=== PATIENT | female | born 1995 | race Caucasian/White ===

== ENCOUNTER 2018-02-20 00:46 | Emergency (ER) | payer OTHER, SELFPAY | END 2018-02-20 02:30 | disposition home or self-care (01) | PROVIDERS: Emergency Provider Emergency Medicine; Visit Provider Emergency Medicine | DX: L05.01 Pilonidal cyst with abscess (principal) | CPT/HCPCS: 10060; 99282 ==

== ENCOUNTER 2018-04-14 22:03 | Emergency (ER) | payer OTHER, SELFPAY ==
[2018-04-14 22:23] VITALS: BP 116/65; PULSE 97; RESP 14; TEMP 36.8; O2SAT 99; BMI 26.3
[2018-04-14] MEDS: ONDANSETRON 4 MG ODT 8 MG PO (22:50)
[2018-04-14 23:28] VITALS: BP 111/68; PULSE 88; O2SAT 98
--- NOTE | 2018-04-14 23:35 | ED.URI ---
HPI - URI/Sore Throat General Chief Complaint: Upper Respiratory Symptoms Stated Complaint: 14 WEEKS TASTE METALIC TASTE Time Seen by Provider: 04/14/18 22:09 History of Present Illness HPI Narrative: HPI 23-year-old female at 14 weeks gestation with the known intrauterine (prior ultrasound, has TRAINING AND DEVELOPMENT COORDINATOR) presents for evaluation of one day of minor sinus congestion, sore throat, dry nonproductive cough. Denies fevers, chills. Denies abdominal pain, notes that she has had ongoing issues with morning sickness, continues to tolerate liquids well, has had intermittent issues today with tolerance of solids. Continues pass flatus, stool, urine at baseline. Notes a mild metallic E-type taste that began after having sore throat. Denies rash, neck stiffness, headache, changes in vision or hearing, or ear pain. M/S/F/SocHx notable for: please see HPI; remainder reviewed with patient and in chart. ROS: Negative constitutional, eye, cardiovascular, pulmonary, GI, , MSK, skin, neurologic, psychiatric, endocrine unless noted in the HPI. Exam Gen: Pleasant, non-toxic appearing, resting comfortably. HEENT: Normocephalic, atraumatic. * Ears - TMs clear bilaterally, bilateral external auditory canals without erythema, inflammation, or swelling, bilateral mastoids nontender without overlying erythema, swelling, or warmth. * Eyes - Bilateral eyes without injection, swelling, or discharge, no proptosis or periorbital erythema, swelling, warmth, or tenderness. * Mouth - Anterior oropharynx with MMM, no lesions appreciated, floor of the mouth is soft and without swelling. Posterior oropharynx with mild erythema but without swelling, exudate, lesions, uvula midline. * Nose - nares without crusting or discharge. * Neck - Neck supple without posterior anterior cervical chain lymphadenopathy bilaterally. Resp: Clear to auscultation bilaterally, normal work of breathing without accessory muscle usage.Infrequent mildly productive cough observed. Card: Regular rate and rhythm with no murmurs, rubs or gallops. Extremities warm and well perfused. GI: Non-tender to palpation throughout all quadrants, no masses or organomegaly appreciated. : Deferred MSK: No visible deformities, strength and tone without visually appreciable deficit. Neuro: AO x 3, no facial asymmetry, vision and hearing WNL. Heme/Lymph: Deferred Skin: Normal color with no visible lesions (other than noted above). Psych: Mood and affect appropriate. MDM Previous chart, nursing note, and vitals reviewed. A: 23-year-old female at 14 weeks gestation with the known intrauterine (prior ultrasound, has TRAINING AND DEVELOPMENT COORDINATOR) presents for evaluation of one day of minor sinus congestion, sore throat, dry nonproductive cough. DDx: viral rhinosinusitis, bacterial rhinosinusitis, pharyngitis (HSV vs viral NOS vs GAS vs bacterial NOS)], EBV, peritonsillar cellulitis, SAMPLE STEAMER, RPA, Melquiades's angina, epiglottitis, appendicitis, biliary disease. Evaluation: Overall presentation most consistent with a viral rhinosinutisis, given the duration of symptoms and overall well compensated appearance, antibiotic treatment is not currently indicated, rapid strep not indicated, oral mucosa without lesions consistent with HSV or candidiasis, low suspicion for peritonsillar cellulitis or abscess given the absence of asymmetric swelling or uvular deviation, RPA is unlikely as the patient can comfortably flex and extend their neck and swallow without difficulty. As phonation is intact and breathing is unlabored doubt epiglottitis. The floor of the mouth is without evidence of Melquiades's angina. Lemierre's disease was considered but as the patient does not have signs of SAMPLE STEAMER or sepsis, further evaluation was not indicated. An intra-abdominal process was also considered, but as the patient is benign exam, and alternate symptom constellation that strongly points towards upper respiratory tract infection, and continues to take PO adequately and pass flatus and stool at baseline no further evaluations presently indicated. Patient given Zofran and tolerated both solids and liquids well. Patient discharged with Zofran and instructions to follow-up with her TRAINING AND DEVELOPMENT COORDINATOR. Suspect the patient's mild metallic type taste with secondary to her upper respiratory tract infection. ED Course: No clinically significant changes. Disposition: Discharge with return to care as needed. Return to care indications provided. Impression: Rhinosinusitis. (please reference below for remainder of encounter information) Related Data Home Medications Medication Instructions Recorded Confirmed [id number] acid 1 tab PO DAILY 04/14/18 04/14/18 [ 19] Allergies Allergy/AdvReac Type Severity Reaction Status Date / Time No Known Drug Allergies Allergy Verified 04/14/18 22:15 ON LICENSE OF [facility] Social History Smoking Status: Former smoker Exam Initial Vital Signs Initial Vital Signs: Vital Signs Temperature 98.3 F 04/14/18 22:23 Pulse Rate 97 H 04/14/18 22:23 Respiratory Rate 14 04/14/18 22:23 Blood Pressure 116/65 04/14/18 22:23 Pulse Oximetry 99 04/14/18 22:23 Course Orders Ordered: Discontinued Medications Ondansetron HCl (Zofran Odt) 8 mg PO NOW ONE Stop: 04/14/18 22:40 Last Admin: 04/14/18 22:50 Dose: 8 mg Ondansetron HCl (Zofran Odt Prepack) 1 bottle MISC SEEINSTR ONE Stop: 04/14/18 23:29 Vital Signs - 8 hr 04/14/18 22:23 04/14/18 23:28 Temperature 98.3 F Pulse Rate 97 H 88 Respiratory Rate 14 Blood Pressure 116/65 Blood Pressure [Right Arm] 111/68 Pulse Oximetry 99 98 Discharge Plan Departure Prescriptions: No Action [id number] acid [ 19] 29 mg iron- 1 mg Tablet,Chewable 1 tab PO DAILY RF: 0
[2018-04-14] MEDS: ONDANSETRON 4 MG ODT PREPACK 1 BOTTLE MISC (23:40)
== END 2018-04-14 23:43 | disposition home or self-care (01) ==
PROVIDERS: Emergency Provider Emergency Medicine
DX: R39.9 Unspecified symptoms and signs involving the genitourinary system (principal); J32.9 Chronic sinusitis, unspecified; Z3A.14 14 weeks gestation of pregnancy
CPT/HCPCS: 99282; 99283

== ENCOUNTER 2018-08-25 18:06 | Observation (INO) | payer OTHER, SELFPAY ==
--- NOTE | 2018-08-25 20:10 | PM.OBTRLD ---
Visit Information Visit Information Date of evaluation: 08/25/18 Primary OB Provider: Ravinder Reyez On-call OB Provider: Gianna Harding Reason for Evaluation: Yes non-stress test non-stress test reason: other (Patient fell and hit her right side of her abdomen) [facility] Social History Smoking Status: Former smoker Review of Systems Review of Systems Patient denies any vaginal bleeding. She denies any leakage of fluid. She has good movement. She does have pain especially in the right lower quadrant near her groin. All systems reviewed & are unremarkable except as noted in HPI and below Exam Vital Signs (past 8 hours): Blood pressure 104/63, pulse of 78, temperature 97? Narrative Exam Narrative: Patient's abdomen is soft with slight amount of tenderness on the right side. No bruising. Evaluation Evaluation Baseline heart rate: 140 Variability: Moderate (11-25) monitor accelerations: Present monitor decelerations: Absent Category of Tracing: I Diagnosis, Plan/Disposition Final Diagnosis (1) Blunt abdominal trauma: Current Visit: Yes Status: Acute (2) 33 weeks gestation of : Current Visit: Yes Status: Acute Plan/Disposition Plan: Patient with fall on her abdomen. No evidence of concern. Patient was warned to call if she has increasing abdominal pain, vaginal bleeding, decreased movement.
--- NOTE | 2018-08-25 20:13 | P.TNLD_ITS ---
Visit Information Visit Information Date of evaluation: 08/25/18 Primary OB Provider: Ravinder Reyez On-call OB Provider: Gianna Harding Reason for Evaluation: Yes non-stress test non-stress test reason: other ( Patient fell and hit her right side of her abdomen) [facility] Social History Smoking Status: Former smoker Review of Systems Review of Systems Patient denies any vaginal bleeding. She denies any leakage of fluid. She has good movement. She does have pain especially in the right lower quadrant near her groin. All systems reviewed & are unremarkable except as noted in HPI and below Exam Vital Signs (past 8 hours): Blood pressure 104/63, pulse of 78, temperature 97? Narrative Exam Narrative: Patient's abdomen is soft with slight amount of tenderness on the right side. No bruising. Evaluation Evaluation Baseline heart rate: 140 Variability: Moderate (11-25) monitor accelerations: Present monitor decelerations: Absent Category of Tracing: I Diagnosis, Plan/Disposition Final Diagnosis (1) Blunt abdominal trauma: Current Visit: Yes Status: Acute (2) 33 weeks gestation of : Current Visit: Yes Status: Acute Plan/Disposition Plan: Patient with fall on her abdomen. No evidence of concern. Patient was warned to call if she has increasing abdominal pain, vaginal bleeding, decreased movement.
== END 2018-08-25 20:20 | disposition home or self-care (01) ==
LOC: LABOR 18:07
PROVIDERS: Admitting Provider Specialist; Visit Provider Specialist
DX: S39.81XA Other specified injuries of abdomen, initial encounter (principal); Z3A.32 32 weeks gestation of pregnancy; W19.XXXA Unspecified fall, initial encounter
CPT/HCPCS: 59025; 59050; G0378; G0379

== ENCOUNTER → 2018-09-25 10:36 | Outpatient (CLI) | payer OTHER, SELFPAY ==
[2018-09-26 08:09] LABS: Strep Grp B PCR NEG for Grp B Strep
== END ==
DX: Z34.03 Encounter for supervision of normal first pregnancy, third trimester (principal)
CPT/HCPCS: 87653

== ENCOUNTER 2018-10-27 01:07 | Inpatient (IN) | payer OTHER, SELFPAY ==
[2018-10-27 06:15] VITALS: BP 115/65
[2018-10-27 06:31] LABS: Add Manual Diff / Slide Review NO; Basophils Percent Auto 0.4 % (0-2); Eosinophils Percent Auto 0.4 % (2-4); Hemoglobin 12.3 g/dL (12.0-16.0); Lymphocytes Percent Auto 17.8 % (25-40); Mean Corpuscular HGB Conc 33.1 % (30-36); Mean Corpuscular Hemoglobin 29.3 PG (26-34); Mean Corpuscular Volume 88.4 fL (80-100); Monocytes Percent Auto 6.6 % (3-14); Neutrophils Absolute Auto 9900 /uL (1500-7000); Neutrophils Percent Auto 74.8 % (50-75); Platelet Count 278 X10^3/uL (150-400); Red Blood Cell Count 4.19 X10^6/uL (4.0-5.2); Red Cell Distribution Width 14.9 % (11.6-14.8); White Blood Cell Count 13.2 X10^3/uL (4.5-11.0)
--- NOTE | 2018-10-27 07:47 | PM.OBPNLAB ---
Date/Time Date Patient Seen: 10/27/18 Time Patient Seen: 07:48 Pain Control Pain control: epidural Comments: Epidural working well Pelvic Exam Dilation (cm): 4 Effacement (%): 60 station: -4 Amniotic membrane status: Ruptured Comments: head is much higher than expected for primagravida at this stage of dilatation. Effacement is also atypical were we have a long open cervix. This may be an early indicator disproportion. There also has been two fairly significant decelerations which may represent decreased amniotic fluid volume. Contractions Contractions on admission: regular Monitor mode: External Contraction frequency (min): 4 Contraction duration (min): 60 Contraction pattern: Irregular Contraction intensity: Moderate Status status: Category ll Heart Rate Baseline: 120 Monitor Accelerations: Present Monitor Decelerations: Variable Monitor Variability: Moderate Comments: 2 long variable decelerations noted Assessment and Plan Assessment: active labor Plan: continuous present management Comments: Will recheck patient in a couple of hours to see about descent of the head effacement and dilatation. We may need to start Pitocin because of spacing out of contractions. We will need to pay attention to the intermittent deceleration is which have occurred.
[2018-10-27] MEDS: LACTATED RINGERS 1,000 ML 100 ML IV ×2 (08:07→15:03)
--- NOTE | 2018-10-27 10:34 | PM.OBPNLAB ---
Date/Time Date Patient Seen: 10/27/18 Time Patient Seen: 10:34 Pain Control Pain control: tolerating well and epidural Pelvic Exam Dilation (cm): 4 Effacement (%): 60 station: -4 Amniotic membrane status: Ruptured Comments: No progress since last exam Contractions Contractions on admission: irregular Monitor mode: External Contraction frequency (min): 60 Contraction pattern: Irregular Contraction intensity: Mild Status status: Category ll Heart Rate Baseline: 110 Monitor Decelerations: Absent Monitor Variability: Moderate Comments: Low baseline value. The response to scalp stimulation by 20 beats per Min Assessment and Plan Assessment: active labor Plan: begin patient augmentation Comments: Now has a desultory labor pattern with infrequent contractions. Examination shows the head to be still very high. Ultrasound examination shows the baby to be in SANGEETA presentation. The cervix is still relatively long and only 4 cm dilated.
[2018-10-27] MEDS: OXYTOCIN PREMIX 30 UNIT/500 ML PLAST..BAG IV (10:42)
--- NOTE | 2018-10-27 12:03 | PM.OBPNLAB ---
Date/Time Date Patient Seen: 10/27/18 Time Patient Seen: 12:04 Pain Control Pain control: tolerating well and epidural Pelvic Exam Dilation (cm): 4 Effacement (%): 60 station: -4 Amniotic membrane status: Ruptured Contractions Contractions on admission: regular Monitor mode: External Pitocin rate (mU/min): 3 Contraction frequency (min): 60 Contraction pattern: Regular Contraction intensity: Moderate Status status: Category ll Heart Rate Baseline: 120 Monitor Accelerations: Present Monitor Decelerations: Variable Comments: Patient with two variable decelerations to 70 beats r minute Assessment and Plan Assessment: active labor Plan: Comments: Patient with no progress and the head high out of the pelvis. The lack of descensus is the most worrisome sign. The long cervix without increase in dilatation is also worrisome. In addition the decelerations down to 70 in a variable pattern increases the risks and I think dictate delivery by abdominal method.
--- NOTE | 2018-10-27 13:49 | PM.GYNOP.1 ---
Operative Date/Time/Diagnoses Date of procedure: 10/27/18 Time of procedure: 13:49 Pre-op diagnosis: Cephalopelvic disproportion failure to progress Severe variable deceleration Post-op diagnosis: same Procedure: Primary low segment section, Flores type Indications: Cephalopelvic disproportion failure to progress Surgeon: Ravinder Reyez Anesthesia Type: Epidural Operative Notes Findings: Live-born fetus Normal uterus tubes and ovaries Closure Type: primary Specimen(s): none Applied: catheter Estimated blood loss (mL): 600 Blood products transfused: none Procedure in detail: The patient was placed supine upon the operating table and the epidural was reinforced. Patient was then draped and prepared in usual fashion. Transverse incision was made suprapubically. Subcutaneous tissue was incised to the fascia. Subcutaneous tissue was dissected away bluntly and the fascia was incised transversely in each direction. The pyramidalis muscles were incised in the midline and this was widened by blunt finger dissection. Peritoneum was picked up and incised in white blood finger dissection again. Bladder blade was then placed. Peritoneum over the lower uterine segment was picked up and incised laterally in each direction the bladder was taken down the bladder blade then replaced. Transverse incisions was made across the lower uterine segment. There was some bleeding secondary to low-lying placenta. Perforating incision was made and this was widened with blunt finger dissection. A live-born female with scores eight at 1 min nine at 5 min was delivered without difficulty. The labor delivery nurse and respiratory therapist were in attendance lb normal in good condition. The placenta was removed without difficulty. All membranes were massage of the endometrial cavity. The incision was then closed in imbricating fashion using a two layer technique with 1. Chromic suture. There was one bleeder on the right-hand side which was suture ligated with a [id number] suture the bleeding subsides. The visceral peritoneum was closed with a running two 0 chromic suture. Tubes and ovaries appeared to be normal. The parietal perineum was closed with a running two 0 chromic suture. Area was copiously irrigated. The fascia was closed with two continuous 1. Vicryl sutures. Subcutaneous tissue was closed in two layers. 1st layer was closed with interrupted three 0 Vicryl suture. 2nd layer was closed with running horizontal mattress three 0 Vicryl suture. The skin was further approximated Steri-Strips. At the end procedure the wound was dry urine was clear and the patient was taken to the recovery room in satisfactory condition. Complications: none Post-operative Condition: stable Disposition: PACU Plan for aftercare: Routine aftercare
--- NOTE | 2018-10-27 13:55 | P.OP_ITS ---
Operative Date/Time/Diagnoses Date of procedure: 10/27/18 Time of procedure: 13:49 Pre-op diagnosis: Cephalopelvic disproportion failure to progress Severe variable deceleration Post-op diagnosis: same Procedure: Primary low segment section, Flores type Indications: Cephalopelvic disproportion failure to progress Surgeon: Ravinder Reyez Anesthesia Type: Epidural Operative Notes Findings: Live-born fetus Normal uterus tubes and ovaries Closure Type: primary Specimen(s): none Applied: catheter Estimated blood loss (mL): 600 Blood products transfused: none Procedure in detail: The patient was placed supine upon the operating table and the epidural was reinforced. Patient was then draped and prepared in usual fashion. Transverse incision was made suprapubically. Subcutaneous tissue was incised to the fascia. Subcutaneous tissue was dissected away bluntly and the fascia was incised transversely in each direction. The pyramidalis muscles were incised in the midline and this was widened by blunt finger dissection. Peritoneum was picked up and incised in white blood finger dissection again. Bladder blade was then placed. Peritoneum over the lower uterine segment was picked up and incised laterally in each direction the bladder was taken down the bladder blade then replaced. Transverse incisions was made across the lower uterine segment. There was some bleeding secondary to low-lying placenta. Perforating incision was made and this was widened with blunt finger dissection. A live-born female with scores eight at 1 min nine at 5 min was delivered without difficulty. The labor delivery nurse and respiratory therapist were in attendance lb normal in good condition. The placenta was removed without difficulty. All membranes were massage of the endometrial cavity. The incision was then closed in imbricating fashion using a two layer technique with 1. Chromic suture. There was one bleeder on the right- hand side which was suture ligated with a [id number] suture the bleeding subsides. The visceral peritoneum was closed with a running two 0 chromic suture. Tubes and ovaries appeared to be normal. The parietal perineum was closed with a running two 0 chromic suture. Area was copiously irrigated. The fascia was closed with two continuous 1. Vicryl sutures. Subcutaneous tissue was closed in two layers. 1st layer was closed with interrupted three 0 Vicryl suture. 2nd layer was closed with running horizontal mattress three 0 Vicryl suture. The skin was further approximated Steri-Strips. At the end procedure the wound was dry urine was clear and the patient was taken to the recovery room in satisfactory condition. Complications: none Post-operative Condition: stable Disposition: PACU Plan for aftercare: Routine aftercare
[2018-10-27] MEDS: KETOROLAC 30 MG/ML VIAL IV ×2 (14:43→20:50)
[2018-10-27] MEDS: OXYCODONE IR 5 MG TABLET PO ×3 (14:51→22:50)
[2018-10-27 16:25] VITALS: TEMP 36.4
[2018-10-27] MEDS: HYDROMORPHONE 2 MG INJ IV ×2 (16:25→18:26)
[2018-10-27 18:26] VITALS: TEMP 36.2
[2018-10-27] MEDS: NICOTINE 14 PATCH 14 MG TOP (18:27)
[2018-10-28 02:00] VITALS: TEMP 36.2
[2018-10-28] MEDS: HYDROMORPHONE 2 MG INJ IV (02:00)
[2018-10-28 03:14] VITALS: TEMP 36.4
[2018-10-28] MEDS: KETOROLAC 30 MG/ML VIAL IV ×2 (03:14→09:37)
[2018-10-28 03:26] VITALS: TEMP 36.4
[2018-10-28] MEDS: OXYCODONE IR 5 MG TABLET PO ×4 (03:26→22:28)
--- NOTE | 2018-10-28 09:46 | P.PNOB_ITS ---
Subjective - OB Patient comments: no complaints and pain well controlled [place] baby status: doing well feeding status: exclusively breast feeding Narrative: The patient is a 23-year-old status post section for cephalopelvic disproportion and prolonged variable decelerations. The surgery was uneventful. She was delivered a baby girl 8 lb 7 oz who is doing well and she is . The patient's IV is out. Her Acosta was removed this morning which she has not voided. She is taking p.o. well Date Patient Seen: 10/28/18 Time Patient Seen: 09:45 Exam Vital Signs (past 8 hours): - 10/28/18 02:00 10/28/18 03:14 10/28/18 03:26 Temperature 97.1 F L 97.5 F L 97.5 F L Narrative Exam Narrative: Fundus U minus two Incision is covered with a dressing but without any evidence of bleeding her saturation Lochia scant Objective ECG Impression: 1. Post section day doing well Plan is for progressive ambulation Labs Result Diagrams: 10/27/18 02:00 Assessment & Plan Time Spent With Patient Total time spent is greater than 50% in coordination of care (as documented) at patient's floor/unit and/or counseling patient: less than 15 minutes
[2018-10-28] MEDS: DOCUSATE 250 MG CAPSULE PO (09:56)
[2018-10-28 13:15] VITALS: TEMP 36.6
[2018-10-28] MEDS: OXYCODONE IR 5 MG TABLET 10 MG PO (13:15)
[2018-10-28] MEDS: IBUPROFEN 600 MG TABLET PO (17:45)
[2018-10-28 17:46] LABS: Hematocrit 30.4 % (36-46)
[2018-10-28] MEDS: FERROUS GLUCONATE 324 MG TABLET PO (17:50)
[2018-10-28] MEDS: NICOTINE 14 PATCH 14 MG TOP (18:45)
[2018-10-29 00:23] VITALS: TEMP 36.8
[2018-10-29] MEDS: IBUPROFEN 600 MG TABLET PO ×2 (00:23→06:28)
[2018-10-29] MEDS: OXYCODONE IR 5 MG TABLET PO ×2 (02:34→06:29)
--- NOTE | 2018-10-29 09:27 | PM.OBDS.1 ---
Discharge Providers Date of admission: 10/27/18 01:07 Primary care physician: Ravinder Reyez MD Consults: 10/27/18 02:00 Consult to Anesthesiology Urgent Comment: Consulting Provider: Anesthesiologist Reason for consultation: intrapartum pain medication 10/27/18 14:33 Consult to Page Technician Routine Comment: Discharge provider: Ravinder Reyez MD Discharge Date: 10/29/18 Summary Date Patient Seen: 10/29/18 Time Patient Seen: 09:28 Hospital Course: The patient is a 23-year-old single white female one now para one who presented in active labor. The patient made slow progress and the baby's head remained high out of the pelvis with serious variable decelerations into the 70s. In view of the lack of progress and the serious deceleration the patient was taken to surgery and underwent a primary low segment section. She was delivered of a live-born female without difficulty. Post delivery the patient did well. She remained afebrile with stable vital signs and was progressively Alimented and ambulated. She was discharged home for follow-up in two weeks Peripartum Data Delivery Method: Section complications: none Status at Discharge Cognitive/behavioral status at discharge: Normal Functional status at discharge: independent ambulation Overall status at discharge: patient is back to baseline Time Spent with Patient Total time spent providing and/or coordinating discharge services: Less than 30 minutes Objective Labs Result Diagrams: 10/28/18 17:15 Labs: Laboratory Results - last 24 hr 10/28/18 17:15 Hgb 10.0 L Hct 30.4 L Discharge Plan Discharge Plan Patient Disposition: Home Discharge Med Rec/Prescriptions Prescriptions: New ibuprofen 600 mg Tablet 600 mg PO Q6HR PRN (Reason: As Needed For Fever/Mild Pain) Qty: 20 RF: 0 docusate sodium 250 mg Capsule 250 mg PO DAILY Qty: 20 RF: 0 oxycodone 5 mg Tablet 10 mg PO Q4H PRN (Reason: Pain, Severe (7-10)) Qty: 30 RF: 0 lanolin [[id number]-T-Jsovpn] Cream 1 applic Topical PRN PRN (Reason: ) Qty: 1 RF: 0 ferrous gluconate 324 mg (38 mg iron) Tablet 324 mg PO DAILY 30 Days RF: 0 Continue [id number] acid [ 19] 29 mg iron- 1 mg Tablet,Chewable 1 tab PO DAILY RF: 0 Provider Discharge Instructions Diet: Diet as Tolerated Activity: Up ad lorena Skin/Wound/Dressing Care Report to your healthcare provider any signs of infection, such as:: chills, fever, increased pain, unusual drainage and unusual redness Dressing: Use chair pad maker on incision Discharge Data Primary Care Provider: Ravinder Reyez Attending Provider: Hope Jain Admlora Date/Time: 10/27/18 01:07
--- NOTE | 2018-10-29 09:30 | P.DS_ITS ---
Discharge Providers Date of admission: 10/27/18 01:07 Primary care physician: Ravinder Reyez MD Consults: 10/27/18 02:00 Consult to Anesthesiology Urgent Comment: Consulting Provider: Anesthesiologist Reason for consultation: intrapartum pain medication 10/27/18 14:33 Consult to Public Relations Associate Routine Comment: Discharge provider: Ravinder Reyez MD Discharge Date: 10/29/18 Summary Date Patient Seen: 10/29/18 Time Patient Seen: 09:28 Hospital Course: The patient is a 23-year-old single white female one now para one who presented in active labor. The patient made slow progress and the baby's head remained high out of the pelvis with serious variable decelerations into the 70s. In view of the lack of progress and the serious deceleration the patient was taken to surgery and underwent a primary low segment section. She was delivered of a live-born female without difficulty. Post delivery the patient did well. She remained afebrile with stable vital signs and was progressively Alimented and ambulated. She was discharged home for follow-up in two weeks Peripartum Data Delivery Method: Section complications: none Status at Discharge Cognitive/behavioral status at discharge: Normal Functional status at discharge: independent ambulation Overall status at discharge: patient is back to baseline Time Spent with Patient Total time spent providing and/or coordinating discharge services: Less than 30 minutes Objective Labs Result Diagrams: 10/28/18 17:15 Labs: Laboratory Results - last 24 hr 10/28/18 17:15 Hgb 10.0 L Hct 30.4 L Discharge Plan Discharge Plan Patient Disposition: Home Discharge Med Rec/Prescriptions Prescriptions: New ibuprofen 600 mg Tablet 600 mg PO Q6HR PRN (Reason: As Needed For Fever/Mild Pain) Qty: 20 RF: 0 docusate sodium 250 mg Capsule 250 mg PO DAILY Qty: 20 RF: 0 oxycodone 5 mg Tablet 10 mg PO Q4H PRN (Reason: Pain, Severe (7-10)) Qty: 30 RF: 0 lanolin [Cjm-[id number]] Cream 1 applic Topical PRN PRN (Reason: ) Qty: 1 RF: 0 ferrous gluconate 324 mg (38 mg iron) Tablet 324 mg PO DAILY 30 Days RF: 0 Continue [id number] acid [ 19] 29 mg iron- 1 mg Tablet,Chewable 1 tab PO DAILY RF: 0 Provider Discharge Instructions Diet: Diet as Tolerated Activity: Up ad lorena Skin/Wound/Dressing Care Report to your healthcare provider any signs of infection, such as:: chills, fever, increased pain, unusual drainage and unusual redness Dressing: Use chairman and ceo on incision Discharge Data Primary Care Provider: Ravinder Reyez Attending Provider: Hope Jain Admlora Date/Time: 10/27/18 01:07
[2018-10-29 10:32] VITALS: BP 112/67; PULSE 89; RESP 17; TEMP 37.2
[2018-10-29 10:59] VITALS: BP 112/67; PULSE 89; RESP 17; TEMP 37.2
[2018-10-29] MEDS: DOCUSATE 250 MG CAPSULE PO (11:25)
[2018-10-29] MEDS: FERROUS GLUCONATE 324 MG TABLET PO (11:25)
[2018-10-29] MEDS: OXYCODONE IR 5 MG TABLET 10 MG PO (11:28)
== END 2018-10-29 12:15 | disposition home or self-care (01) | DRG 788 ==
PROVIDERS: Admitting Provider Obstetrics & Gynecology; Visit Provider Obstetrics & Gynecology
DX: O33.9 Maternal care for disproportion, unspecified (principal); O62.2 Other uterine inertia; Z37.0 Single live birth; O76 Abnormality in fetal heart rate and rhythm complicating labor and delivery; Z3A.41 41 weeks gestation of pregnancy
CPT/HCPCS: 01967; 01968; 36415; 59050; 59515; 76815; 84112; 85014; 85018; 85025; 86850; 86900; 86901; G0379; J1170; J1885; J2405; J2590; J3010

== ENCOUNTER → 2018-12-19 10:55 | Outpatient (CLI) | payer OTHER, SELFPAY ==
[2018-12-21 20:57] LABS: Testosterone Free 2.8 pg/mL (0.1-6.4); Testosterone Total 36 ng/dL (2-45)
== END ==
DX: E28.2 Polycystic ovarian syndrome (principal)
CPT/HCPCS: 36415; 84402; 84403